=== PATIENT | female | born 1985 | race Caucasian/White ===

== ENCOUNTER 2017-07-06 18:54 | Emergency (ER) | payer OTHER ==
[~2017-07-06] VITALS: Ht 165.1 cm; Wt 70.0 kg
[~2017-07-06 18:54] MED LIST: CLON1TAB PO; LURA1TAB PO; SERT-129 PO
[2017-07-06 19:21] VITALS: BP 123/78; PULSE 71; RESP 18; TEMP 98.2; O2SAT 98
--- NOTE | 2017-07-06 20:53 | PD ---
HPI Chief Complaint: Psychiatric Symptoms Time Seen by Provider: 20:20 Travel History International Travel<30 days: No Contact w/Intl Traveler<30days: No Traveled to known affect area: No History of Present Illness HPI 32-year-old female that presents to the ED for evaluation of psychiatric illness. Patient was [place] by police secondary to apparently running away. Patient apparently wrote a note to her girlfriend that she was given and her life and she was not found for a couple days. She does have a history of substance abuse. She has a history of bipolar disorder. She is somewhat anxious on exam. She denies any fevers chills or sweats. No chest pain or shortness of breath. Denies any cuts. She denies using drugs or alcohol recently. She used to be on medications: Depakote but has not taken any since almost a month now. Unclear as to why. Denies any suicidal or homicidal ideation to me. She does appear to be somewhat anxious on examination. Symptoms appear to be ongoing for a couple days. PFSH Past Medical History Cancer: No Cardiovascular Problems: No Diabetes: No Endocrine: No Genitourinary: No Hepatitis: No Hiatal Hernia: No Immune Disorder: No Musculoskeletal: No Neurologic: No Psychiatric: Yes (SCHIZO EFFECTIVE DISORDER) Reproductive: Yes (MENORRHAGIA) Respiratory: No Thyroid Disease: No Tetanus Vaccination: Unknown ?: Not Dilation and Curettage (D&C): Yes Past Surgical History AICD: No Gynecologic Surgery: Yes (D & C ) Hysterectomy: Yes (partial) Joint Replacement: No Pacemaker: No Other Surgery: Yes Social History Alcohol Use: Yes Tobacco Use: No Substance Use: No Allergies-Medications (Allergen,Severity, Reaction): Coded Allergies: Sulfa (Sulfonamide Antibiotics) (Unverified Allergy, Severe, HIVES, VOMITING, 05/19/17) Reported Meds & Prescriptions Reported Meds & Active Scripts Active Reported Sertraline 100 mg (Sertraline HCl) 100 Mg Tab 1 Tab PO DAILY Clonazepam 1 Mg Tab 1 Mg PO TID Latuda (Lurasidone HCl) 60 Mg Tab 1 Tab PO DAILY Review of Systems Except as stated in HPI: all other systems reviewed are Neg Physical Exam Narrative GENERAL: SKIN: Warm and dry. HEAD: Atraumatic. Normocephalic. EYES: Pupils equal and round. No scleral icterus. No injection or drainage. ENT: No nasal bleeding or discharge. Mucous membranes pink and moist. Tongue is midline. No uvula deviation. NECK: Trachea midline. No JVD. CARDIOVASCULAR: Regular rate and rhythm. No murmurs, S3, S4. RESPIRATORY: No accessory muscle use. Clear to auscultation. Breath sounds equal bilaterally. GASTROINTESTINAL: Abdomen soft, non-tender, nondistended. Hepatic and splenic margins not palpable. MUSCULOSKELETAL: Extremities without clubbing, cyanosis, or edema. No obvious deformities. Full range of motion of the upper and lower extremities bilaterally. 2+ pulses bilaterally. NEUROLOGICAL: Awake and alert. No obvious cranial nerve deficits. Motor grossly within normal limits. Five out of 5 muscle strength in the arms and legs. Normal speech. PSYCHIATRIC: Anxious mood and affect; insight and judgment normal. Data Data Last Documented VS Vital Signs Date Time Temp Pulse Resp B/P (MAP) Pulse Ox O2 Delivery O2 Flow Rate FiO2 07/06/17 19:21 98.2 71 18 123/78 (93) 98 Orders Orders Complete Blood Count With Diff (07/06/17 19:32) Comprehensive Metabolic Panel (07/06/17 19:32) Psych Screen (07/06/17 19:32) Drug Screen, Random Urine (07/06/17 19:32) Alcohol (Ethanol) (07/06/17 19:32) Salicylates (Aspirin) (07/06/17 19:32) Tylenol (Acetaminophen) (07/06/17 19:32) ^ Sitter (07/06/17 20:33) [facility] Medical Decision Making Medical Screen Exam Complete: Yes Emergency Medical Condition: Yes Medical Record Reviewed: Yes Differential Diagnosis Depression versus suicidal ideation versus anxiety versus adjustment disorder versus mood disorder versus bipolar disorder versus schizophrenia versus paranoid disorder versus psychosis versus substance abuse versus alcohol abuse versus alcohol induced psychosis versus homicidality addition versus cutting versus personality disorder Narrative Course 32-year-old female that presents to the ED for evaluation of psych. Patient was properly examined and was found to have signs and symptoms consistent with psychiatric illness. No sign of acute medical distress. Patient was medically cleared. Okay to be seen by psych. Labs were drawn. Mental health screening was discussed with the patient. Diagnosis Primary Impression: Mood disorder Lemuel Chowdhury Jul 06, 2017 20:53
[2017-07-06 21:01] VITALS: BP 106/63; PULSE 68; RESP 18; O2SAT 98
[2017-07-06] MEDS ORDERED: LORazepam 2 MG/ML VIAL IM ONE (22:00)
[2017-07-06] MEDS ORDERED: diphenhydrAMINE HCL 50 MG/ML VIAL IM ONE (22:00)
[2017-07-06 22:42] LABS: AUTOMATED NEUTROPHIL # 4.6 TH/MM3 (1.8-7.7); BASOPHIL # 0.1 TH/MM3 (0-0.2); EOSINOPHIL # 0.1 TH/MM3 (0-0.4); HEMO FLAGS DIFF FINAL; LYMPH % 19.8 % (9.0-44.0); LYMPHOCYTE # 1.2 TH/MM3 (1.0-4.8); MEAN CELL VOLUME 90.9 FL (80.0-100.0); MEAN CORPUSCULAR HEMOGLOBIN 30.6 PG (27.0-34.0); MEAN CORPUSCULAR HGB CONC 33.7 % (32.0-36.0); MONO % 3.9 % (0.0-8.0); NEUT % 74.3 % (16.0-70.0); PLATELET COUNT 306 TH/MM3 (150-450); RED CELL DISTRIBUTION WIDTH 14.2 % (11.6-17.2); WHITE BLOOD COUNT 6.2 TH/MM3 (4.0-11.0)
[2017-07-06 23:06] LABS: ANION GAP 8 MEQ/L (5-15)
[2017-07-06 23:24] LABS: ALKALINE PHOSPHATASE 64 U/L (45-117); ALT (GPT) 16 U/L (10-53); AST (GOT) 14 U/L (15-37); BICARBONATE 29.3 MEQ/L (21.0-32.0); BLOOD UREA NITROGEN 12 MG/DL (7-18); CHLORIDE 101 MEQ/L (98-107); GLOMERULAR FILTRATION RATE 103 ML/MIN (>89); POTASSIUM 3.9 MEQ/L (3.5-5.1); SODIUM (NA) 138 MEQ/L (136-145); TOTAL BILIRUBIN ADULT 0.2 MG/DL (0.2-1.0)
[2017-07-06 23:25] LABS: ACETAMINOPHEN LESS THAN 2.0 MCG/ML (10.0-30.0); ALCOHOL 255 MG/DL (0-5)
[2017-07-07 09:03] VITALS: BP 92/53; PULSE 74; RESP 16; O2SAT 97
[2017-07-07 10:46] VITALS: BP 108/75; PULSE 70; RESP 12
--- NOTE | 2017-07-07 16:45 | PD ---
History of Present Illness Chief Complaint: Psychiatric Symptoms Time Seen by Provider: 16:45 Travel History International Travel<30 Days: No Contact w/Intl Traveler<30days: No Known affected area: No Legal Status Legal Status: Mckinn[place] Act Mckinnon Act Signed By: Criss Mckinnon Act Comment: D/S ZULMA MORENO #[id number] History of Present Illness: 32-year-old female with history of alcoholism. Patient wants treatment for alcoholism and is trying to get in to treatment. She denies any suicidal or homicidal ideation, plan or intent. She has no psychotic symptoms and her cognition is intact. She is verbally paul for safety and she is competent to do so. She has a place to go, staying with her girlfriend, until she gets into treatment. [facility] Past Medical History Medical History: Denies Significant Hx Cancer: No Cardiovascular Problems: No Diabetes: No Endocrine: No Genitourinary: No Hepatitis: No Hiatal Hernia: No Immune Disorder: No Musculoskeletal: No Neurologic: No Psychiatric: Yes (SCHIZO EFFECTIVE DISORDER) Reproductive: Yes (MENORRHAGIA) Respiratory: No Thyroid Disease: No Tetanus Vaccination: Unknown ?: Not Dilation and Curettage (D&C): Yes Past Surgical History AICD: No Gynecologic Surgery: Yes (D & C ) Hysterectomy: Yes (partial) Joint Replacement: No Pacemaker: No Other Surgery: Yes Psychiatric History Psychiatric History Hx Psychiatric Treatment: SCHIZOPHRENIA/BIPOLAR DISEASE. No significant objective clinical evidence of schizophrenia or bipolar disease seen. History of Inpatient Treatment: No Guns or firearms in home: No Social History Hx Alcohol Use: Yes Hx Tobacco Use: No Hx Substance Use: Yes Substance Use Type: Alcohol, Crack Hx of Substance Use Treatment: Yes Allergies-Medications (Allergen,Severity, Reaction): Coded Allergies: Sulfa (Sulfonamide Antibiotics) (Unverified Allergy, Severe, HIVES, VOMITING, 05/19/17) Reported Meds & Prescriptions Reported Meds & Active Scripts Active Review of Systems Except as stated in HPI: all other systems reviewed are Neg Exam Alert: Yes [place]: Person, Place, Date, Situation Mood: Calm Affect: Appropriate Speech: Clear Eye Contact: Normal Memory Intact: Immediate, Recent, Remote Remarks Adequate MDM Medical Decision Making Medical Record Reviewed: Yes Assessment/Plan Patient interviewed at bedside, medical record reviewed and case discussed with nurse Shahida. Ino act being lifted as patient is not suicidal, homicidal or unable to care for self. She plans to continue trying to get herself into a detox/rehabilitation facility. Orders Orders Complete Blood Count With Diff (07/06/17 19:32) Comprehensive Metabolic Panel (07/06/17 19:32) Psych Screen (07/06/17 19:32) Drug Screen, Random Urine (07/06/17 19:32) Alcohol (Ethanol) (07/06/17 19:32) Salicylates (Aspirin) (07/06/17 19:32) Tylenol (Acetaminophen) (07/06/17 19:32) ^ Sitter (07/06/17 20:33) Restraints Non-Violent BRAD.Q3H (07/06/17 21:37) Lorazepam Inj (Ativan Inj) (07/06/17 22:00) Diphenhydramine Inj (Benadryl Inj) (07/06/17 22:00) Diet Regular Basic (07/07/17 Breakfast) Diet Regular Basic (07/07/17 Lunch) Diet Regular Basic (07/07/17 Dinner) Results Vital Signs Date Time Temp Pulse Resp B/P (MAP) Pulse Ox O2 Delivery O2 Flow Rate FiO2 07/07/17 10:46 70 12 108/75 (86) 07/07/17 09:03 74 16 92/53 (66) 97 Room Air 07/06/17 21:01 68 18 106/63 (77) 98 Room Air 07/06/17 19:21 98.2 71 18 123/78 (93) 98 Laboratory Tests Test 07/06/17 19:50 White Blood Count 6.2 Red Blood Count 4.40 Hemoglobin 13.5 Hematocrit 40.0 Mean Corpuscular Volume 90.9 Mean Corpuscular Hemoglobin 30.6 Mean Corpuscular Hemoglobin Concent 33.7 Red Cell Distribution Width 14.2 Platelet Count 306 Mean Platelet Volume 8.2 Neutrophils (%) (Auto) 74.3 Lymphocytes (%) (Auto) 19.8 Monocytes (%) (Auto) 3.9 Eosinophils (%) (Auto) 1.0 Basophils (%) (Auto) 1.0 Neutrophils # (Auto) 4.6 Lymphocytes # (Auto) 1.2 Monocytes # (Auto) 0.2 Eosinophils # (Auto) 0.1 Basophils # (Auto) 0.1 CBC Comment DIFF FINAL Differential Comment Blood Urea Nitrogen 12 Creatinine 0.66 Random Glucose 91 Total Protein 8.6 Albumin 4.3 Calcium Level 9.3 Alkaline Phosphatase 64 Aspartate Amino Transf (AST/SGOT) 14 Alanine Aminotransferase (ALT/SGPT) 16 Total Bilirubin 0.2 Sodium Level 138 Potassium Level 3.9 Chloride Level 101 Carbon Dioxide Level 29.3 Anion Gap 8 Estimat Glomerular Filtration Rate 103 Salicylates Level 1.8 Acetaminophen Level LESS THAN 2.0 Ethyl Alcohol Level 255 Diagnosis Primary Impression: Alcohol abuse Ricardo Valenzuela MD Jul 07, 2017 16:45
--- NOTE | 2017-07-07 16:52 | PD ---
Physical Exam Date Seen by Provider: Jul 07, 2017 Time Seen by Provider: 16:51 Data Data Last Documented VS Vital Signs Date Time Temp Pulse Resp B/P (MAP) Pulse Ox O2 Delivery O2 Flow Rate FiO2 07/07/17 17:02 98.7 80 16 108/75 (86) 98 07/07/17 09:03 Room Air Orders Orders Complete Blood Count With Diff (07/06/17 19:32) Comprehensive Metabolic Panel (07/06/17 19:32) Psych Screen (07/06/17 19:32) Drug Screen, Random Urine (07/06/17 19:32) Alcohol (Ethanol) (07/06/17 19:32) Salicylates (Aspirin) (07/06/17 19:32) Tylenol (Acetaminophen) (07/06/17 19:32) ^ Sitter (07/06/17 20:33) Restraints Non-Violent BRAD.Q3H (07/06/17 21:37) Lorazepam Inj (Ativan Inj) (07/06/17 22:00) Diphenhydramine Inj (Benadryl Inj) (07/06/17 22:00) Diet Regular Basic (07/07/17 Breakfast) Diet Regular Basic (07/07/17 Lunch) Labs Laboratory Tests Test 07/06/17 19:50 White Blood Count 6.2 TH/MM3 Red Blood Count 4.40 MIL/MM3 Hemoglobin 13.5 GM/DL Hematocrit 40.0 % Mean Corpuscular Volume 90.9 FL Mean Corpuscular Hemoglobin 30.6 PG Mean Corpuscular Hemoglobin Concent 33.7 % Red Cell Distribution Width 14.2 % Platelet Count 306 TH/MM3 Mean Platelet Volume 8.2 FL Neutrophils (%) (Auto) 74.3 % Lymphocytes (%) (Auto) 19.8 % Monocytes (%) (Auto) 3.9 % Eosinophils (%) (Auto) 1.0 % Basophils (%) (Auto) 1.0 % Neutrophils # (Auto) 4.6 TH/MM3 Lymphocytes # (Auto) 1.2 TH/MM3 Monocytes # (Auto) 0.2 TH/MM3 Eosinophils # (Auto) 0.1 TH/MM3 Basophils # (Auto) 0.1 TH/MM3 CBC Comment DIFF FINAL Differential Comment Blood Urea Nitrogen 12 MG/DL Creatinine 0.66 MG/DL Random Glucose 91 MG/DL Total Protein 8.6 GM/DL Albumin 4.3 GM/DL Calcium Level 9.3 MG/DL Alkaline Phosphatase 64 U/L Aspartate Amino Transf (AST/SGOT) 14 U/L Alanine Aminotransferase (ALT/SGPT) 16 U/L Total Bilirubin 0.2 MG/DL Sodium Level 138 MEQ/L Potassium Level 3.9 MEQ/L Chloride Level 101 MEQ/L Carbon Dioxide Level 29.3 MEQ/L Anion Gap 8 MEQ/L Estimat Glomerular Filtration Rate 103 ML/MIN Salicylates Level 1.8 MG/DL Acetaminophen Level LESS THAN 2.0 MCG/ML Ethyl Alcohol Level 255 MG/DL [facility] Supervised Visit with LORAINE: No Narrative Course 32-year-old female originally brought to the ED under EX PARTE order. I was asked to disposition the patient. Patient was initially seen by Sanjay Chowdhury PA-C medically cleared. She was then evaluated by Dr. Ricardo Valenzuela and cleared from a psychiatric standpoint. Please see their notes for full details. On my exam the patient is alert, oriented, anxious to be discharged. She has no somatic complaints. GENERAL: Well-nourished, well-developed white female in no acute distress. SKIN: Focused skin assessment warm/dry. HEAD: Normocephalic. EYES: No scleral icterus. No injection or drainage. NECK: Supple, trachea midline. No JVD or lymphadenopathy. CARDIOVASCULAR: Regular rate and rhythm without murmurs, gallops, or rubs. RESPIRATORY: Breath sounds equal bilaterally. No accessory muscle use. GASTROINTESTINAL: Abdomen soft, non-tender, nondistended. MUSCULOSKELETAL: No cyanosis, or edema. Demonstrates a normal gait. BACK: Nontender without obvious deformity. No CVA tenderness. The discharge plan is for the patient to follow up outpatient for treatment of alcohol abuse. The patient tells me that she is going to try to find an inpatient rehabilitation. She is stable and discharged home. Diagnosis Primary Impression: Alcohol abuse Referrals: [facility] (Out patient) Additional Instruction: Seek outpatient treatment at [facility] as discussed with the psychiatrist. Return to the ED for any urgent or emergent medical condition. Disposition: 01 DISCHARGE HOME Condition: Stable Jillian Wolf Jul 07, 2017 16:52
[2017-07-07 17:02] VITALS: BP 108/75; TEMP 98.7
== END 2017-07-07 17:06 | disposition home or self-care (01) ==
LOC: NEPE 18:54 → NEPJ 07-07 17:06
DX: F10.10 Alcohol abuse, uncomplicated (principal); F25.9 Schizoaffective disorder, unspecified; F39 Unspecified mood [affective] disorder; Z79.899 Other long term (current) drug therapy; Z88.2 Allergy status to sulfonamides
CPT/HCPCS: 80053; 80307; 85025; 96372; 99285; J1200; J2060

== ENCOUNTER 2018-01-06 10:27 | Emergency (ER) | payer OTHER ==
[~2018-01-06] VITALS: Ht 165.1 cm; Wt 76.0 kg
[2018-01-06 10:34] VITALS: BP 109/66; PULSE 88; RESP 16; TEMP 97.7; O2SAT 98
--- NOTE | 2018-01-06 11:00 | PD ---
HPI Chief Complaint: GI Complaint Time Seen by Provider: 11:00 Travel History International Travel<30 days: No Contact w/Intl Traveler<30days: No Traveled to known affect area: No History of Present Illness HPI 32-year-old female came to the emergency room with history of abdominal discomfort and black stool for past 3 days. Patient says initially the first day she had bright red color in her stool. Patient did not understand and thought it could be from the pepperoni that she had eaten. However the subsequent days she has had 3-4 episodes every day of black stool. She has been little lightheaded and dizzy. Vital signs are stable otherwise. Patient has never had these symptoms in the past. She is describing some generalized abdominal discomfort which is about 3 out of 10. No history of vomiting. She has been nauseous. Patient takes Advil PM every night for a long time. No aggravating or relieving factors for the abdominal pain. No radiation. Patient has been looking up on [facility] and is concerned if the Advil PM could cause these symptoms especially of ulcer. She does not have a primary care physician currently but does have insurance. [facility], [facility] Past Medical History Narrative Medical List of her past medical, surgical, social and family history reviewed from the nursing note. Cancer: No Cardiovascular Problems: No Diabetes: No Endocrine: No Genitourinary: No Hepatitis: No Hiatal Hernia: No Immune Disorder: No Musculoskeletal: No Neurologic: No Psychiatric: Yes (SCHIZO EFFECTIVE DISORDER) Reproductive: Yes (MENORRHAGIA) Respiratory: No Thyroid Disease: No ?: Not Dilation and Curettage (D&C): Yes Past Surgical History AICD: No Gynecologic Surgery: Yes (D & C ) Hysterectomy: Yes Joint Replacement: No Pacemaker: No Other Surgery: Yes Social History Alcohol Use: Yes Tobacco Use: No Substance Use: Yes Allergies-Medications (Allergen,Severity, Reaction): Coded Allergies: Sulfa (Sulfonamide Antibiotics) (Unverified Allergy, Severe, HIVES, VOMITING, 01/06/18) Comments List of her allergies reviewed from the nursing note. Reported Meds & Prescriptions Reported Meds & Active Scripts Active Zofran Odt (Ondansetron Odt) 4 Mg Tab 4 Mg SL Q6HR PRN Omeprazole 20 Mg Tab 20 Mg PO DAILY Narrative Medication List of her home medications reviewed from the nursing note. Review of Systems Except as stated in HPI: all other systems reviewed are Neg Gastrointestinal: Positive: Nausea, Abdominal Pain, Hematochezia Physical Exam Narrative GENERAL: Awake, alert, mild distress SKIN: Focused skin assessment warm/dry. Pale HEAD: Atraumatic. Normocephalic. EYES: Pupils equal and round. No scleral icterus. No injection or drainage. ENT: No nasal bleeding or discharge. Mucous membranes pink and moist. NECK: Trachea midline. No JVD. CARDIOVASCULAR: Regular rate and rhythm. No murmur appreciated. RESPIRATORY: No accessory muscle use. Clear to auscultation. Breath sounds equal bilaterally. GASTROINTESTINAL: Abdomen soft, non-tender, nondistended. Hepatic and splenic margins not palpable. MUSCULOSKELETAL: No obvious deformities. No clubbing. No cyanosis. No edema. NEUROLOGICAL: Awake and alert. No obvious cranial nerve deficits. Motor grossly within normal limits. Normal speech. PSYCHIATRIC: Appropriate mood and affect; insight and judgment normal. Data Data Last Documented VS Vital Signs Date Time Temp Pulse Resp B/P (MAP) Pulse Ox O2 Delivery O2 Flow Rate FiO2 01/06/18 12:32 78 16 104/62 (76) 100 Room Air 01/06/18 10:34 97.7 Orders Orders Basic Metabolic Panel (Bmp) (01/06/18 11:08) Complete Blood Count With Diff (01/06/18 11:08) Prothrombin Time / Inr (Pt) (01/06/18 11:08) Type And Screen (01/06/18 11:08) Ecg Monitoring (01/06/18 11:08) Iv Access Insert/Monitor (01/06/18 11:08) Oximetry (01/06/18 11:08) Ondansetron Inj (Zofran Inj) (01/06/18 11:15) Pantoprazole Inj (Protonix Inj) (01/06/18 11:15) Sodium Chlor 0.9% 1000 Ml Inj (Ns 1000 M (01/06/18 11:08) Sodium Chloride 0.9% Flush (Ns Flush) (01/06/18 11:15) Ed Discharge Order (01/06/18 12:14) Labs Laboratory Tests Test 01/06/18 11:25 White Blood Count 5.3 TH/MM3 Red Blood Count 3.99 MIL/MM3 Hemoglobin 11.8 GM/DL Hematocrit 35.4 % Mean Corpuscular Volume 88.7 FL Mean Corpuscular Hemoglobin 29.6 PG Mean Corpuscular Hemoglobin Concent 33.4 % Red Cell Distribution Width 13.9 % Platelet Count 292 TH/MM3 Mean Platelet Volume 7.9 FL Neutrophils (%) (Auto) 60.4 % Lymphocytes (%) (Auto) 28.1 % Monocytes (%) (Auto) 8.3 % Eosinophils (%) (Auto) 2.2 % Basophils (%) (Auto) 1.0 % Neutrophils # (Auto) 3.2 TH/MM3 Lymphocytes # (Auto) 1.5 TH/MM3 Monocytes # (Auto) 0.4 TH/MM3 Eosinophils # (Auto) 0.1 TH/MM3 Basophils # (Auto) 0.1 TH/MM3 CBC Comment DIFF FINAL Differential Comment Prothrombin Time 10.9 SEC Prothromb Time International Ratio 1.1 RATIO Blood Urea Nitrogen 14 MG/DL Creatinine 0.58 MG/DL Random Glucose 84 MG/DL Calcium Level 8.8 MG/DL Sodium Level 138 MEQ/L Potassium Level 3.8 MEQ/L Chloride Level 107 MEQ/L Carbon Dioxide Level 23.5 MEQ/L Anion Gap 8 MEQ/L Estimat Glomerular Filtration Rate 120 ML/MIN MDM Medical Decision Making Medical Screen Exam Complete: Yes Emergency Medical Condition: Yes Medical Record Reviewed: Yes Differential Diagnosis Upper GI bleed, melena, gastric ulcer, peptic ulcer disease Narrative Course 11:45 AM given the fact that Hemoccult is positive workup for GI bleed has been initiated. Awaiting for blood test result. Patient is getting 1 L of IV fluid bolus and Protonix bolus. 12:14 PM blood test results are back and within acceptable limits. She has remained hemodynamically stable. I have decided to discharge her. Patient will go home with a prescription for omeprazole and follow-up with GI specialist and primary care. Procedures EKG Prior to Arrival: No HemaPrompt Point of Care Internal Pos. & Neg. Controls: Passed Fecal Specimen Occult Blood: Positive Diagnosis Primary Impression: Melena Additional Impression: GI bleed Qualified Codes: K92.1 - Melena Referrals: [facility] Additional Instructions: Follow-up with primary care. If you cannot find one there is the number of a walk-in clinic that has been given to you on this discharge paper that you can follow-up with. The need to refer you to a GI specialist especially if the symptoms continue. He will need an endoscopy at that point. Do not take any more Advil/Motrin/ibuprofen based medications. Eat diet that is less in acid content and no alcohol or smoking. Return to the ER if the condition worsens or any other new concerns. Med/Other Pt SpecificInfo: Prescription(s) given Scripts Ondansetron Odt (Zofran Odt) 4 Mg Tab 4 MG SL Q6HR Y for Nausea/Vomiting, #15 TAB 0 Refills Prov: Enrique Awad MD 01/06/18 Omeprazole (Omeprazole) 20 Mg Tab 20 MG PO DAILY, #30 TAB 0 Refills Prov: Enrique Awad MD 01/06/18 Disposition: 01 DISCHARGE HOME Condition: Stable Enrique Awad MD Jan 06, 2018 11:00
[2018-01-06] MEDS ORDERED: SODIUM CHLOR 0.9% 1000 ML INJ 1,000 ML IV SCH (11:08)
[2018-01-06] MEDS ORDERED: SODIUM CHLORIDE 0.9% FLUSH 10 ML FLUSH IVF PRN (11:15)
[2018-01-06] MEDS ORDERED: PANTOPRAZOLE SODIUM 40 MG VIAL IVP ONE (11:15)
[2018-01-06] MEDS ORDERED: ONDANSETRON HCL 4 MG/2 ML VIAL IVP ONE (11:15)
[2018-01-06 11:25] VITALS: O2SAT 100
[2018-01-06 11:35] VITALS: BP 98/62; PULSE 91; RESP 16; O2SAT 100
[2018-01-06 11:55] LABS: AUTOMATED NEUTROPHIL # 3.2 TH/MM3 (1.8-7.7); BASOPHIL # 0.1 TH/MM3 (0-0.2); EOSINOPHIL # 0.1 TH/MM3 (0-0.4); EOSINOPHIL % 2.2 % (0.0-4.0); HEMATOCRIT 35.4 % (35.0-46.0); HEMOGLOBIN 11.8 GM/DL (11.6-15.3); LYMPH % 28.1 % (9.0-44.0); LYMPHOCYTE # 1.5 TH/MM3 (1.0-4.8); MEAN CELL VOLUME 88.7 FL (80.0-100.0); MEAN CORPUSCULAR HEMOGLOBIN 29.6 PG (27.0-34.0); MEAN CORPUSCULAR HGB CONC 33.4 % (32.0-36.0); MEAN PLATELET VOLUME 7.9 FL (7.0-11.0); MONO % 8.3 % (0.0-8.0); MONOCYTE # 0.4 TH/MM3 (0-0.9); NEUT % 60.4 % (16.0-70.0); PLATELET COUNT 292 TH/MM3 (150-450); RED BLOOD COUNT 3.99 MIL/MM3 (4.00-5.30); RED CELL DISTRIBUTION WIDTH 13.9 % (11.6-17.2); WHITE BLOOD COUNT 5.3 TH/MM3 (4.0-11.0)
[2018-01-06 12:03] LABS: INTERNATIONAL NORMALIZED RATIO 1.1 RATIO; PROTHROMBIN TIME - PATIENT 10.9 SEC (9.8-11.6)
[2018-01-06 12:06] LABS: BICARBONATE 23.5 MEQ/L (21.0-32.0); CALCIUM 8.8 MG/DL (8.5-10.1)
[2018-01-06 12:10] LABS: CREATININE 0.58 MG/DL (0.50-1.00)
[2018-01-06] MEDS ORDERED: ZOFR4TAB3 SL (12:17)
[2018-01-06] MEDS ORDERED: OMEP20TA93 PO (12:17)
[2018-01-06 12:32] VITALS: BP 104/62; PULSE 78; RESP 16; O2SAT 100
== END 2018-01-06 12:30 | disposition home or self-care (01) ==
LOC: PHED 10:27
DX: K92.1 Melena (principal); K92.2 Gastrointestinal hemorrhage, unspecified; R42 Dizziness and giddiness; F25.9 Schizoaffective disorder, unspecified; Z79.899 Other long term (current) drug therapy; Z88.2 Allergy status to sulfonamides
CPT/HCPCS: 80048; 85025; 85610; 86850; 86900; 86901; 96361; 96374; 96375; 99284; C9113; J2405; J7030